=== PATIENT | male | born 1980 | race African-American/Black ===

== ENCOUNTER 2021-08-02 18:30 | Inpatient (IN) | payer BC ==
[~2021-08-02] VITALS: Ht 172.7 cm; Wt 66.0 kg
[2021-08-02 18:59] LABS: BASO # 0.1 x10^3/uL (0.0-0.2); BASO % 1 % (0-3); EOS % 0 % (0-3); HEMATOCRIT 37.3 % (39.0-53.0); HEMOGLOBIN 12.5 g/dL (13.0-17.5); LYMPH # 1.3 x10^3/uL (1.0-4.8); LYMPH % 15 % (24-48); MEAN CORPUSCULAR HEMOGLOBIN 32 pg (25-35); MEAN CORPUSCULAR HGB CONC 34 g/dL (31-37); MEAN CORPUSCULAR VOLUME 94 fL (79-100); MONO # 0.8 x10^3/uL (0.0-1.1); MONO % 9 % (0-9); NEUT # 6.5 x10^3/uL (1.8-7.7); NEUT % 75 % (31-73); PLATELET COUNT 212 x10^3/uL (140-400); RED BLOOD COUNT 3.99 x10^6/uL (4.30-5.70); RED CELL DISTRIBUTION WIDTH 14.6 % (11.5-14.5); WHITE BLOOD COUNT 8.6 x10^3/uL (4.0-11.0)
[2021-08-02] MEDS ORDERED: IV NORMAL SALINE 1000ML BAG 1,000 ML IV ONE ×2 (19:00→20:00)
[2021-08-02 19:07] LABS: CREATININE 1.4 mg/dL (0.7-1.3); GFR 68.3; POTASSIUM 3.3 mmol/L (3.5-5.1)
--- NOTE | 2021-08-02 19:14 | PHYS DOC ---
Past Medical History Past Medical History: No Pertinent History Past Surgical History: No Surgical History Additional Past Surgical Histo: dental Smoking Status: Current Every Day Smoker Alcohol Use: Heavy Drug Use: Marijuana General Adult EDM: Chief Complaint: SEIZURE HPI: HPI: Patient is a 40 year old male who presents with was at work at [employer] today when he had a seizure. Coworker stated that it lasted for approximately 2 minutes. He fell from standing. He states that he has a frontal lobe headache and left-sided neck pain. He states that he thinks about 6 months ago he had his seizure and with the [facility] and they started him on Keppra. He states he never followed up and he does not have a neurologist or primary care. He states he has not taken his Keppra for the last 2 months. When asked why he has not taken his Keppra he stated that he did not have another prescription for the medication. Rates his headache at a aching 6 out of 10. Denies abdominal pain, nausea, vomiting, diarrhea, aura, vision change, numbness or tingling, chest pain, shortness of air, recent illness, focal weakness, back pain, drug use. Review of Systems: Review of Systems: Constitutional: Denies fever or chills. [] Eyes: Denies change in visual acuity. [] HENT: Denies nasal congestion or sore throat. [] Respiratory: Denies cough or shortness of breath. [] Cardiovascular: Denies chest pain or edema. [] GI: Denies abdominal pain, nausea, vomiting, bloody stools or diarrhea. [] : Denies dysuria. [] Musculoskeletal: Denies back pain or joint pain.+ Neck pain [] Integument: Denies rash. [] Neurologic: + headache, denies focal weakness or sensory changes. + Seizure. Endocrine: Denies polyuria or polydipsia. [] Lymphatic: Denies swollen glands. [] Psychiatric: Denies depression or anxiety. [] Heart Score: C/O Chest Pain: No Current Medications: Current Medications Medications (Trade) Dose Ordered Sig/Marcos Start Time Stop Time Status Last Admin Dose Admin Levetiracetam 100 ml @ 400 mls/hr 1X ONCE 08/02/21 19:15 08/02/21 19:29 Sodium Chloride 1,000 ml @ 1,000 mls/hr 1X ONCE 08/02/21 19:00 08/02/21 19:59 Allergies: Allergies: Allergies Coded Allergies Type Severity Reaction Last Updated Verified No Known Drug Allergies 08/02/21 No Physical Exam: PE: Constitutional: Well developed, well nourished, no acute distress, non-toxic appearance. [] HENT: Normocephalic, atraumatic, bilateral external ears normal, oropharynx moist, no oral exudates, nose normal. [] Eyes: PERRLA, EOMI, conjunctiva normal, no discharge. [] Neck: Normal range of motion, no tenderness, supple, no stridor. [] Cardiovascular:Heart rate regular rhythm, no murmur [] Lungs & Thorax: Bilateral breath sounds clear to auscultation [] Abdomen: Bowel sounds normal, soft, no tenderness, no masses, no pulsatile masses. [] Skin: Warm, dry, no erythema, no rash. [] Back: No tenderness, no CVA tenderness. [] Extremities: No tenderness, no cyanosis, no clubbing, ROM intact, no edema. [] Neurologic: Alert and oriented X 3, normal motor function, normal sensory function, no focal deficits noted. [] Psychologic: Affect normal, judgement normal, mood normal. [] Normal physical exam Current Patient Data: Labs: Laboratory Tests Test 08/02/21 18:40 White Blood Count 8.6 x10^3/uL (4.0-11.0) Red Blood Count 3.99 x10^6/uL (4.30-5.70) L Hemoglobin 12.5 g/dL (13.0-17.5) L Hematocrit 37.3 % (39.0-53.0) L Mean Corpuscular Volume 94 fL (79-100) Mean Corpuscular Hemoglobin 32 pg (25-35) Mean Corpuscular Hemoglobin Concent 34 g/dL (31-37) Red Cell Distribution Width 14.6 % (11.5-14.5) H Platelet Count 212 x10^3/uL (140-400) Neutrophils (%) (Auto) 75 % (31-73) H Lymphocytes (%) (Auto) 15 % (24-48) L Monocytes (%) (Auto) 9 % (0-9) Eosinophils (%) (Auto) 0 % (0-3) Basophils (%) (Auto) 1 % (0-3) Neutrophils # (Auto) 6.5 x10^3/uL (1.8-7.7) Lymphocytes # (Auto) 1.3 x10^3/uL (1.0-4.8) Monocytes # (Auto) 0.8 x10^3/uL (0.0-1.1) Eosinophils # (Auto) 0.0 x10^3/uL (0.0-0.7) Basophils # (Auto) 0.1 x10^3/uL (0.0-0.2) Laboratory Tests 08/02/21 18:40 Vital Signs: Vital Signs Date Time Temp Pulse Resp B/P (MAP) Pulse Ox O2 Delivery O2 Flow Rate FiO2 08/02/21 18:30 98.6 74 16 165/112 (129) 100 Room Air 98.6 EKG: EK and read by Dr. Hancock as a sinus rhythm and no STEMI Radiology/Procedures: Radiology/Procedures: [] Impression: [place] [address] IMAGING REPORT Signed PATIENT: HARMAN MENSAH ACCOUNT: [id number] : 1980 LOCATION: ER AGE: 40 SEX: M EXAM STATUS: REG ER ORD. PHYSICIAN: JOHNY HOUSER APRN REASON: SYNCOPE PROCEDURE: PORTABLE CHEST 1V Exam: Chest one view INDICATION: Syncope TECHNIQUE: Frontal view of the chest Comparisons: None FINDINGS: The cardiomediastinal silhouette and pulmonary vessels are within normal limits. The lung and pleural spaces are clear. IMPRESSION: No acute cardiopulmonary process. Electronically signed by: Monet Gama MD (08/02/2021 7:34 PM) [facility] DICTATED and SIGNED BY: OMNET GAMA MD DATE: 08/02/211930 [address] [address] IMAGING REPORT Signed PATIENT: HARMAN JOHNSON EACCOUNT: [id number] : 1980 LOCATION: ER AGE: 40 SEX: M EXAM STATUS: REG ER ORD. PHYSICIAN: JOHNY HOUSER APRN REASON: SEIZURE, FALL PROCEDURE: CT HEAD AND CERVICAL SPINE WO Exam: CT head and cervical spine INDICATION: Seizure, fall TECHNIQUE: Sequential axial images through the head and cervical spine were obtained without the administration of IV contrast. Exposure: One or more of the following in the visualized dose reduction t echniques were utilized for this examination: 1. Automated exposure control 2. Adjustment of the MA and/or KV according to patient size 3. Use of iterative of reconstructive technique Comparisons: None FINDINGS: Head: No focal parenchymal lesion or hemorrhage is identified. There is no midline shift or sulcal effacement. No acute vascular territory infarction is identified. Elizondo-white distinction is preserved. The ventricular system is within normal limits without compression hydrocepha darling. The basal cisterns are well maintained. The visualized portions of the paranasal sinuses and mastoid air cells are well- pneumatized. No acute fractures. Cervical spine: Vertebral body heights and alignment are well-maintained. Fracture through the cervical spine is not identified. No significant spondylotic change in the cervical spine. Visualized paraspinal soft tissues are unremarkable. IMPRESSION: 1. No acute intracranial abnormality. 2. Negative CT C-spine for acute traumatic injury. Electronically signed by: Monet Gama MD (08/02/2021 8:50 PM) [facility] DICTATED and SIGNED BY: MONET GAMA MD DATE: 08/02/212046 Course & Med Decision Making: Course & Med Decision Making Pertinent Labs and Imaging studies reviewed. (See chart for details) See HPI. Alert and oriented x4. Ambulatory with steady gait. Answers all questions appropriately. Moving all extremities equally with equal strengths. PERRLA. Skin pink warm and dry. Abdomen soft and nontender. No focal bony spinal tenderness. No signs of trauma. No abrasions, lacerations or bruising seen to the patient. Lungs are clear to auscultation in all lobes. Full range of motion of the neck. Not postictal at this time but states he does not remember what he was doing before he had the seizure. Denies any kind of aura. Patient has not vomited twice once in the EMS bay when he was brought in and now again in the room. He is very dehydrated. Patient has been unable to give me a specimen. Is gotten 2 L normal saline in ED. He had a loading dose of Keppra in the ED. CT head and neck showed no acute findings. Patient's liver enzymes are elevated but he denies any abdominal pain. [] Dragon Disclaimer: Dragon Disclaimer: This electronic medical record was generated, in whole or in part, using a voice recognition dictation system. Departure Departure Impression: Primary Impression: Seizure Disposition: 09 ADMITTED INPATIENT Admitting Physician: KASSIE Condition: STABLE Referrals: NO PCP (PCP) JOHNY HOUSER INSTRUMENT REPAIRER Aug 02, 2021 19:14
[2021-08-02] MEDS ORDERED: levETIRAcetam 1,000mg PREMIX 100 ML IV ONE (19:15)
[2021-08-02 19:22] LABS: ALBUMIN 5.1 g/dL (3.4-5.0); ALBUMIN/GLOBULIN RATIO 1.2 (1.0-1.7); MAGNESIUM 2.1 mg/dL (1.8-2.4); TOTAL BILIRUBIN 1.6 mg/dL (0.2-1.0); TOTAL PROTEIN 9.3 g/dL (6.4-8.2)
--- NOTE | 2021-08-02 19:36 | RAD ---
Exam: Chest one view INDICATION: Syncope TECHNIQUE: Frontal view of the chest Comparisons: None FINDINGS: The cardiomediastinal silhouette and pulmonary vessels are within normal limits. The lung and pleural spaces are clear. IMPRESSION: No acute cardiopulmonary process. Electronically signed by: Monet Rodríguez MD (08/02/2021 7:34 PM) [facility]
--- NOTE | 2021-08-02 20:53 | RAD ---
Exam: CT head and cervical spine INDICATION: Seizure, fall TECHNIQUE: Sequential axial images through the head and cervical spine were obtained without the admi nistration of IV contrast. Exposure: One or more of the following in the visualized dose reduction techniques were utilized for this examination: 1. Automated exposure control 2. Adjustment of the MA and/or KV according to patient size 3. Use of iterative of reconstructive technique Comparisons: None FINDINGS: Head: No focal parenchymal lesion or hemorrhage is identified. There is no midline shift or sulcal effaceme nt. No acute vascular territory infarction is identified. Elizondo-white distinction is preserved. The ventricular system is within normal limits without compression hydrocephalus. The basal cisterns are well maintained. The visualized portions of the paranasal sinuses and mastoid air cells are well-pneumatized. No acute fractures. Cervical spine: Vertebral body heights and alignment are well-maintained. Fracture through the cervical spine is not identified. No significant spondylotic change in the cervical spine. Visualized paraspinal soft tissues are unremarkable. IMPRESSION: 1. No acute intracranial abnormality. 2. Negative CT C-spine for acute traumatic injury. Electronically signed by: Monet Rodríguez MD (08/02/2021 8:50 PM) [facility]
[2021-08-02] MEDS ORDERED: ACETAMINOPHEN 325 MG TABLET. PO PRN (21:45)
[2021-08-02] MEDS ORDERED: ONDANSETRON PF 4 MG/2 ML VIAL. IVP PRN (21:45)
[2021-08-02] MEDS ORDERED: ONDANSETRON PF 4 MG/2 ML VIAL. IVP ONE (22:00)
[2021-08-02 22:45] VITALS: BP 128/79
[2021-08-03 00:04] LABS: AMPHETAMINE/METHAMPHETAMINE NEG (NEG); BARBITURATES NEG (NEG); BENZODIAZEPINES NEG (NEG); CANNABINOIDS POS (NEG); COCAINE NEG (NEG); METHADONE NEG (NEG); OPIATES NEG (NEG); PHENCYCLIDINE NEG (NEG)
[2021-08-03] MEDS ORDERED: LEVE500T6 PO (00:54)
[2021-08-03 03:20] VITALS: BP 138/86
--- NOTE | 2021-08-03 06:07 | EKG ---
[facility] [address] [place] [address] Test Date: 2021-08-02 Test Time: 19:46:05 Pat Name: HARMAN JOHNSON Department: Room: [facility] Gender: M [employer]: : 1980 Requested By: JOHNY HOUSER Order Number: [id number] Reading MD: Severino Paniagua Measurements Intervals [place] Rate: 70 P: 51 KS: 162 QRS: 43 QRSD: 82 T: 39 QT: 384 QTc: 417 Interpretive Statements SINUS RHYTHM Electronically Signed On 08-09-2021 14:14:11 CDT by Severino Paniagua
[2021-08-03 07:00] VITALS: BP 131/84
--- NOTE | 2021-08-03 09:40 | PDOC1 ---
History and Physical Date of Admission Date of Admission DATE: 08/03/21 TIME: 09:38 Source Source: Chart review, Patient History of Present Illness History of Present Illness Marybeth, is a 40 year old male had a seizure just after he clocked into work, reproted 2 minute grand-mal seizrue by a coworker. was standing and fell, He has no recollection,but awoke in the ambualnce, reported same admit 6 months ago, seizure and admit [facility] and they started him on Keppra and he has not followed up and has now run out of meds for 2 months. talking to me, he doesnt want to take any meds, barely wants to try tylenol for his headache, talks about "I dont want to be depedent of drugs" or " I dont want to flood my system with a bunch of drugs" Rates his headache at a aching 6 out of 10 Past Medical History Cardiovascular: No pertinent hx CENTRAL NERVOUS SYSTEM: Seizure Hepatobiliary: No pertinent hx Psych: No pertinent hx Rheumatologic: No pertinent hx Endocrine: No pertinent hx Dermatology: No pertinent hx Past Surgical History Past Surgical History: No pertinent history Family History Family History: No Significant Family History: Parent Social History Smoke: No ALCOHOL: none Drugs: None Current Problem List Problem List Problems Medical Problems: (1) Seizure Status: Acute Current Medications Current Medications Current Medications Sodium Chloride 1,000 ml @ 1,000 mls/hr 1X ONCE IV Last administered on 08/02/21at 19:28; Start 08/02/21 at 19:00; Stop 08/02/21 at 19:59; Status DC Levetiracetam 100 ml @ 400 mls/hr 1X ONCE IV Last administered on 08/02/21at 19:19; Start 08/02/21 at 19:15; Stop 08/02/21 at 19:29; Status DC Sodium Chloride 1,000 ml @ 1,000 mls/hr 1X ONCE IV Last administered on 08/02/21at 20:17; Start 08/02/21 at 20:00; Stop 08/02/21 at 20:59; Status DC Ondansetron HCl (Zofran) 4 mg 1X ONCE IVP ; Start 08/02/21 at 22:00; Stop 08/02/21 at 22:01; Status DC Ondansetron HCl (Zofran) 4 mg PRN Q8HRS PRN IVP NAUSEA/VOMITING 1ST CHOICE; Start 08/02/21 at 21:45; Stop 08/03/21 at 21:44 Acetaminophen (Tylenol) 650 mg PRN Q4HRS PRN PO FEVER > 100.3'F; Start 08/02/21 at 21:45; Stop 08/03/21 at 21:44 Active Scripts Active Reported Levetiracetam 500 Mg Tablet 1 Tab PO BID Allergies Allergies: Coded Allergies: No Known Drug Allergies (Unverified , 08/02/21) ROS Review of System Denies abdominal pain, nausea, vomiting, diarrhea, aura, vision change, numbness or tingling, chest pain, shortness of air, recent illness, focal weakness, back pain, drug use. General: No: Chills, Night Sweats, Fatigue, Malaise, Appetite, Other PSYCHOLOGICAL ROS: No: Anxiety, Behavioral Disorder, Concentration difficultie, Decreased libido, Depression, Disorientation, Hallucinations, Hostility, Irritablity, Memory difficulties, Mood Swings, Obsessive thoughts, Physical abuse, Sexual abuse, Sleep disturbances, Suicidal ideation, Other Eyes: No Blurry vision, No Decreased vision, No Double vision, No Dry eyes, No Excessive tearing, No Eye Pain, No Itchy Eyes, No Loss of vision, No Photophobia, No Scotomata, No Uses contacts, No Uses glasses, No Other HEENT: YES: Heacaches; No: Visual Changes, Hearing change, Nasal congestion, Nasal discharge, Oral lesions, Sinus pain, Sore Throat, Epistaxis, Sneezing, Snoring, Tinnitus, Vertigo, Vocal changes, Other Respiratory: No: Cough, Hemoptysis, Orthopnea, Pleuritic Pain, Shortness of breath, SOB with excertion, Sputum Changes, Stridor, Tachypnea, Wheezing, Other Cardiovascular: No Chest Pain, No Palpitations, No Orthopnea, No Paroxysmal Noc. Dyspnea, No Edema, No Lt Headedness, No Other Gastrointestinal: No Nausea, No Vomiting, No Abdominal Pain, No Diarrhea, No Constipation, No Melena, No Hematochezia, No Other Genitourinary: No Dysuria, No Frequency, No Incontinence, No Hematuria, No Retention, No Discharge, No Urgency, No Pain, No Flank Pain, No Other, No , No , No , No , No , No , No Musculoskeletal: Yes Joint Stiffness, Yes Joint Swelling, Yes Pain In: (back); No Gait Disturbance, No Joint Pain, No Muscle Pain, No Muscular Weakness, No Swelling In:, No Other Neurological: No Behavorial Changes, No Bowel/Bladder ControlChng, No Confusion, No Dizziness, No Gait Disturbance, No Headaches, No Impaired Coord/balance, No Memory Loss, No Numbness/Tingling, No Seizures, No Speech Problems, No Tremors, No Visual Changes, No Weakness, No Other Skin: No Dry Skin, No Eczema, No Hair Changes, No Lumps, No Mole Changes, No Mottling, No Nail Changes, No Pruritus, No Rash, No Skin Lesion Changes, No Other, No Acne Physical Exam General: Alert, Oriented X3, Cooperative, No acute distress HEENT: Atraumatic, PERRLA Heart: S1S2, RRR, no murmurs Extremities: No clubbing, No edema Skin: No breakdown Neuro: Normal speech, Normal tone, Cranial nerves 3-12 NL Psych/Mental Status: Mental status NL, Mood NL Vitals Vitals Vital Signs Date Time Temp Pulse Resp B/P (MAP) Pulse Ox O2 Delivery O2 Flow Rate FiO2 08/03/21 08:00 Room Air 08/03/21 07:00 98.5 83 20 131/84 (100) 100 98.5 Labs Labs Laboratory Tests Test 08/02/21 18:40 08/02/21 23:23 White Blood Count 8.6 x10^3/uL (4.0-11.0) Red Blood Count 3.99 x10^6/uL (4.30-5.70) Hemoglobin 12.5 g/dL (13.0-17.5) Hematocrit 37.3 % (39.0-53.0) Mean Corpuscular Volume 94 fL (79-100) Mean Corpuscular Hemoglobin 32 pg (25-35) Mean Corpuscular Hemoglobin Concent 34 g/dL (31-37) Red Cell Distribution Width 14.6 % (11.5-14.5) Platelet Count 212 x10^3/uL (140-400) Neutrophils (%) (Auto) 75 % (31-73) Lymphocytes (%) (Auto) 15 % (24-48) Monocytes (%) (Auto) 9 % (0-9) Eosinophils (%) (Auto) 0 % (0-3) Basophils (%) (Auto) 1 % (0-3) Neutrophils # (Auto) 6.5 x10^3/uL (1.8-7.7) Lymphocytes # (Auto) 1.3 x10^3/uL (1.0-4.8) Monocytes # (Auto) 0.8 x10^3/uL (0.0-1.1) Eosinophils # (Auto) 0.0 x10^3/uL (0.0-0.7) Basophils # (Auto) 0.1 x10^3/uL (0.0-0.2) Sodium Level 131 mmol/L (136-145) Potassium Level 3.3 mmol/L (3.5-5.1) Chloride Level 93 mmol/L (98-107) Carbon Dioxide Level 22 mmol/L (21-32) Anion Gap 16 (6-14) Blood Urea Nitrogen 7 mg/dL (8-26) Creatinine 1.4 mg/dL (0.7-1.3) Estimated GFR (Cockcroft-Gault) 68.3 BUN/Creatinine Ratio 5 (6-20) Glucose Level 200 mg/dL (70-99) Calcium Level 10.0 mg/dL (8.5-10.1) Magnesium Level 2.1 mg/dL (1.8-2.4) Total Bilirubin 1.6 mg/dL (0.2-1.0) Aspartate Amino Transf (AST/SGOT) 71 U/L (15-37) Alanine Aminotransferase (ALT/SGPT) 64 U/L (16-63) Alkaline Phosphatase 55 U/L (46-116) Creatine Kinase 1332 U/L (39-308) Total Protein 9.3 g/dL (6.4-8.2) Albumin 5.1 g/dL (3.4-5.0) Albumin/Globulin Ratio 1.2 (1.0-1.7) Lipase 146 U/L (73-393) Ethyl Alcohol Level < 10 mg/dL (0-10) Acetone Level Neg (NEG) Urine Opiates Screen Neg (NEG) Urine Methadone Screen Neg (NEG) Urine Barbiturates Neg (NEG) Urine Phencyclidine Screen Neg (NEG) Urine Amphetamine/Methamphetamine Neg (NEG) Urine Benzodiazepines Screen Neg (NEG) Urine Cocaine Screen Neg (NEG) Urine Cannabinoids Screen Pos (NEG) Urine Ethyl Alcohol Neg (NEG) Laboratory Tests Test 08/02/21 18:40 08/02/21 23:23 White Blood Count 8.6 x10^3/uL (4.0-11.0) Red Blood Count 3.99 x10^6/uL (4.30-5.70) Hemoglobin 12.5 g/dL (13.0-17.5) Hematocrit 37.3 % (39.0-53.0) Mean Corpuscular Volume 94 fL (79-100) Mean Corpuscular Hemoglobin 32 pg (25-35) Mean Corpuscular Hemoglobin Concent 34 g/dL (31-37) Red Cell Distribution Width 14.6 % (11.5-14.5) Platelet Count 212 x10^3/uL (140-400) Neutrophils (%) (Auto) 75 % (31-73) Lymphocytes (%) (Auto) 15 % (24-48) Monocytes (%) (Auto) 9 % (0-9) Eosinophils (%) (Auto) 0 % (0-3) Basophils (%) (Auto) 1 % (0-3) Neutrophils # (Auto) 6.5 x10^3/uL (1.8-7.7) Lymphocytes # (Auto) 1.3 x10^3/uL (1.0-4.8) Monocytes # (Auto) 0.8 x10^3/uL (0.0-1.1) Eosinophils # (Auto) 0.0 x10^3/uL (0.0-0.7) Basophils # (Auto) 0.1 x10^3/uL (0.0-0.2) Sodium Level 131 mmol/L (136-145) Potassium Level 3.3 mmol/L (3.5-5.1) Chloride Level 93 mmol/L (98-107) Carbon Dioxide Level 22 mmol/L (21-32) Anion Gap 16 (6-14) Blood Urea Nitrogen 7 mg/dL (8-26) Creatinine 1.4 mg/dL (0.7-1.3) Estimated GFR (Cockcroft-Gault) 68.3 BUN/Creatinine Ratio 5 (6-20) Glucose Level 200 mg/dL (70-99) Calcium Level 10.0 mg/dL (8.5-10.1) Magnesium Level 2.1 mg/dL (1.8-2.4) Total Bilirubin 1.6 mg/dL (0.2-1.0) Aspartate Amino Transf (AST/SGOT) 71 U/L (15-37) Alanine Aminotransferase (ALT/SGPT) 64 U/L (16-63) Alkaline Phosphatase 55 U/L (46-116) Creatine Kinase 1332 U/L (39-308) Total Protein 9.3 g/dL (6.4-8.2) Albumin 5.1 g/dL (3.4-5.0) Albumin/Globulin Ratio 1.2 (1.0-1.7) Lipase 146 U/L (73-393) Ethyl Alcohol Level < 10 mg/dL (0-10) Acetone Level Neg (NEG) Urine Opiates Screen Neg (NEG) Urine Methadone Screen Neg (NEG) Urine Barbiturates Neg (NEG) Urine Phencyclidine Screen Neg (NEG) Urine Amphetamine/Methamphetamine Neg (NEG) Urine Benzodiazepines Screen Neg (NEG) Urine Cocaine Screen Neg (NEG) Urine Cannabinoids Screen Pos (NEG) Urine Ethyl Alcohol Neg (NEG) VTE Prophylaxis Ordered VTE Prophylaxis Devices: No VTE Pharmacological Prophylaxi: Yes Assessment/Plan Assessment/Plan seizure, of keppra 2 months, restart rhabdomyolysis from seizure, 2 liters IV fluid given, restart fluid at 150 headache, try tylenol, fioricet, Neuro consult on obs, needs to stay, admit for rhabdo Justifications for Admission Other Justification CHIKA XIAO MD Aug 03, 2021 09:40
[2021-08-03] MEDS ORDERED: BUTALB/APAP/CAFEIN 50/325/40MG TABLET. PO PRN (09:45)
[2021-08-03] MEDS ORDERED: ACETAMINOPHEN 325 MG TABLET. PO ONE (09:45)
[2021-08-03] MEDS ORDERED: ACETAMINOPHEN 325 MG TABLET. PO PRN (09:45)
[2021-08-03] MEDS ORDERED: POTASSIUM CHLORIDE 20 MEQ TABLET.ER. PO ONE (10:00)
[2021-08-03] MEDS: IV NORMAL SALINE 1000ML BAG 1,000 ML IV SCH ×3 (10:08→20:28)
[2021-08-03] MEDS: levETIRAcetam 500 MG TABLET PO SCH ×2 (10:08→20:28)
[2021-08-03 11:00] VITALS: BP 123/79
[2021-08-03 11:45] LABS: HEMATOCRIT 36.4 % (39.0-53.0); HEMOGLOBIN 12.3 g/dL (13.0-17.5); RED BLOOD COUNT 3.89 x10^6/uL (4.30-5.70); RED CELL DISTRIBUTION WIDTH 14.5 % (11.5-14.5); WHITE BLOOD COUNT 8.1 x10^3/uL (4.0-11.0)
[2021-08-03 12:22] LABS: ALBUMIN/GLOBULIN RATIO 1.1 (1.0-1.7); CALCIUM 9.3 mg/dL (8.5-10.1); GFR 100.7; POTASSIUM 3.4 mmol/L (3.5-5.1); TOTAL BILIRUBIN 1.5 mg/dL (0.2-1.0); TOTAL PROTEIN 7.8 g/dL (6.4-8.2)
[2021-08-03 15:00] VITALS: BP 112/85
[2021-08-03] MEDS: ENOXAPARIN 40 MG/0.4 ML SYRINGE. SQ SCH (16:50)
--- NOTE | 2021-08-03 18:23 | PDOC2 ---
CONSULT Date of Consult Date of Consult DATE: 08/03/21 TIME: 18:21 Reason for Consult Reason for Consult: seizures Identification/Chief Complaint Chief Complaint seizures History of Present Illness Reason for Visit: Patient is 40-year-old man with past medical history of seizures patient was previously treated and also was started on Keppra. Patient is noncompliant with his medication. Patient had episodes of jerking in his extremity weakness by coworker. Patient was started back on Keppra. Patient denied any complaint of headache nausea vomiting chest pain shortness of breath. Patient had improvement in symptoms. No new clinical seizures. Past Medical History Cardiovascular: No pertinent hx CENTRAL NERVOUS SYSTEM: Seizure Hepatobiliary: No pertinent hx Psych: No pertinent hx Rheumatologic: No pertinent hx Endocrine: No pertinent hx Dermatology: No pertinent hx Past Surgical History Past Surgical History: No pertinent history Family History Family History: No Significant Social History Social History: Parent No ALCOHOL: none Drugs: None Current Problem List Problem List Problems Medical Problems: (1) Seizure Status: Acute Current Medications Current Medications Current Medications Sodium Chloride 1,000 ml @ 1,000 mls/hr 1X ONCE IV Last administered on 08/02/21at 19:28; Start 08/02/21 at 19:00; Stop 08/02/21 at 19:59; Status DC Levetiracetam 100 ml @ 400 mls/hr 1X ONCE IV Last administered on 08/02/21at 19 :19; Start 08/02/21 at 19:15; Stop 08/02/21 at 19:29; Status DC Sodium Chloride 1,000 ml @ 1,000 mls/hr 1X ONCE IV Last administered on 08/02/21at 20:17; Start 08/02/21 at 20:00; Stop 08/02/21 at 20:59; Status DC Ondansetron HCl (Zofran) 4 mg 1X ONCE IVP ; Start 08/02/21 at 22:00; Stop 08/02/21 at 22:01; Status DC Ondansetron HCl (Zofran) 4 mg PRN Q8HRS PRN IVP NAUSEA/VOMITING 1ST CHOICE; Start 08/02/21 at 21:45; Stop 08/03/21 at 21:44 Acetaminophen (Tylenol) 650 mg PRN Q4HRS PRN PO FEVER > 100.3'F; Start 08/02/21 at 21:45; Stop 08/03/21 at 12:40; Status DC Levetiracetam (Keppra) 500 mg BID PO Last administered on 08/03/21at 10:08; St art 08/03/21 at 10:30 Potassium Chloride (Klor-Con) 40 meq 1X ONCE PO Last administered on 08/03/21at 10:08; Start 08/03/21 at 10:00; Stop 08/03/21 at 10:01; Status DC Sodium Chloride 1,000 ml @ 150 mls/hr Q6H40M IV Last administered on 08/03/21at 16:48; Start 08/03/21 at 10:00 Acetaminophen (Tylenol) 650 mg 1X ONCE PO Last administered on 08/03/21at 10:08; Start 08/03/21 at 09:45; Stop 08/03/21 at 09:46; Status DC Acetaminophen (Tylenol) 650 mg PRN Q6HRS PRN PO MILD PAIN / TEMP > 100.3'F; Start 08/03/21 at 09:45 Acetaminophen/ Butalbital/ Caffeine (Fioricet) 1 tab PRN Q12HRS PRN PO MIGRAINE HEADACHE; Start 08/03/21 at 09:45 Enoxaparin Sodium (Lovenox Per Pharmacy Prophylaxis Dosing) 1 each PRN DAILY PRN [facility] SEE COMMENTS; Start 08/03/21 at 12:45 Enoxaparin Sodium (Lovenox 40mg Syringe) 40 mg Q24H SQ Last administered on 08/03/21at 16:50; Start 08/03/21 at 16:00 Active Scripts Active Reported Levetiracetam 500 Mg Tablet 1 Tab PO BID Allergies Allergies: Coded Allergies: No Known Drug Allergies (Unverified , 08/02/21) Physical Exam Physical Exam General: No acute distress. Eye: Pupils are equal, round and reactive to light HENT: Normocephalic. Neck: Supple, Non-tender, No carotid bruit, No jugular venous distention Respiratory: Lungs are clear to auscultation, Respirations are non-labored Cardiovascular: Normal rate, Regular rhythm, No murmur, Good pulses equal in all extremities Gastrointestinal: Soft, Non-tender, Non-distended, Normal bowel sounds. Neurological Exam: Mental status: Alert,oriented, able to follow simple commands. Speech: no dysarthria Cranial Nerves: pupils round and reactive to light, extraocular movements intact normal facial sensation in ophthalmic, maxillary, and mandibular dermatomes, muscles of mastication 5/5 bilaterally no facial droop, eye closure and eyebrow elevation symmetric symmetric palatal elevation tongue midline, no fasciculations Motor: No resting, tremor. Good strength, normal coordination. Sensory: Sensation was intact to light touch, pain, in upper and lower extremities. Reflexes: 1-2/4. Toes were downgoing. Gait: wide based. A 10-point review of systems was obtained. Other than the history of present illness the remainder of the review of systems is negative. Vitals VITALS Vital Signs Date Time Temp Pulse Resp B/P (MAP) Pulse Ox O2 Delivery O2 Flow Rate FiO2 08/03/21 15:00 98.6 74 20 112/85 (94) 100 Room Air 98.6 Labs Labs Laboratory Tests Test 08/02/21 18:40 08/02/21 23:23 08/03/21 11:20 White Blood Count 8.6 x10^3/uL (4.0-11.0) 8.1 x10^3/uL (4.0-11.0) Red Blood Count 3.99 x10^6/uL (4.30-5.70) 3.89 x10^6/uL (4.30-5.70) Hemoglobin 12.5 g/dL (13.0-17.5) 12.3 g/dL (13.0-17.5) Hematocrit 37.3 % (39.0-53.0) 36.4 % (39.0-53.0) Mean Corpuscular Volume 94 fL (79-100) 94 fL (79-100) Mean Corpuscular Hemoglobin 32 pg (25-35) 32 pg (25-35) Mean Corpuscular Hemoglobin Concent 34 g/dL (31-37) 34 g/dL (31-37) Red Cell Distribution Width 14.6 % (11.5-14.5) 14.5 % (11.5-14.5) Platelet Count 212 x10^3/uL (140-400) 174 x10^3/uL (140-400) Neutrophils (%) (Auto) 75 % (31-73) Lymphocytes (%) (Auto) 15 % (24-48) Monocytes (%) (Auto) 9 % (0-9) Eosinophils (%) (Auto) 0 % (0-3) Basophils (%) (Auto) 1 % (0-3) Neutrophils # (Auto) 6.5 x10^3/uL (1.8-7.7) Lymphocytes # (Auto) 1.3 x10^3/uL (1.0-4.8) Monocytes # (Auto) 0.8 x10^3/uL (0.0-1.1) Eosinophils # (Auto) 0.0 x10^3/uL (0.0-0.7) Basophils # (Auto) 0.1 x10^3/uL (0.0-0.2) Sodium Level 131 mmol/L (136-145) 134 mmol/L (136-145) Potassium Level 3.3 mmol/L (3.5-5.1) 3.4 mmol/L (3.5-5.1) Chloride Level 93 mmol/L (98-107) 99 mmol/L (98-107) Carbon Dioxide Level 22 mmol/L (21-32) 25 mmol/L (21-32) Anion Gap 16 (6-14) 10 (6-14) Blood Urea Nitrogen 7 mg/dL (8-26) 6 mg/dL (8-26) Creatinine 1.4 mg/dL (0.7-1.3) 1.0 mg/dL (0.7-1.3) Estimated GFR (Cockcroft-Gault) 68.3 100.7 BUN/Creatinine Ratio 5 (6-20) 6 (6-20) Glucose Level 200 mg/dL (70-99) 91 mg/dL (70-99) Calcium Level 10.0 mg/dL (8.5-10.1) 9.3 mg/dL (8.5-10.1) Magnesium Level 2.1 mg/dL (1.8-2.4) Total Bilirubin 1.6 mg/dL (0.2-1.0) 1.5 mg/dL (0.2-1.0) Aspartate Amino Transf (AST/SGOT) 71 U/L (15-37) 59 U/L (15-37) Alanine Aminotransferase (ALT/SGPT) 64 U/L (16-63) 50 U/L (16-63) Alkaline Phosphatase 55 U/L (46-116) 43 U/L (46-116) Creatine Kinase 1332 U/L (39-308) 1683 U/L (39-308) Total Protein 9.3 g/dL (6.4-8.2) 7.8 g/dL (6.4-8.2) Albumin 5.1 g/dL (3.4-5.0) 4.0 g/dL (3.4-5.0) Albumin/Globulin Ratio 1.2 (1.0-1.7) 1.1 (1.0-1.7) Lipase 146 U/L (73-393) Ethyl Alcohol Level < 10 mg/dL (0-10) Acetone Level Neg (NEG) Urine Opiates Screen Neg (NEG) Urine Methadone Screen Neg (NEG) Urine Barbiturates Neg (NEG) Urine Phencyclidine Screen Neg (NEG) Urine Amphetamine/Methamphetamine Neg (NEG) Urine Benzodiazepines Screen Neg (NEG) Urine Cocaine Screen Neg (NEG) Urine Cannabinoids Screen Pos (NEG) Urine Ethyl Alcohol Neg (NEG) Laboratory Tests Test 08/02/21 18:40 08/02/21 23:23 08/03/21 11:20 White Blood Count 8.6 x10^3/uL (4.0-11.0) 8.1 x10^3/uL (4.0-11.0) Red Blood Count 3.99 x10^6/uL (4.30-5.70) 3.89 x10^6/uL (4.30-5.70) Hemoglobin 12.5 g/dL (13.0-17.5) 12.3 g/dL (13.0-17.5) Hematocrit 37.3 % (39.0-53.0) 36.4 % (39.0-53.0) Mean Corpuscular Volume 94 fL (79-100) 94 fL (79-100) Mean Corpuscular Hemoglobin 32 pg (25-35) 32 pg (25-35) Mean Corpuscular Hemoglobin Concent 34 g/dL (31-37) 34 g/dL (31-37) Red Cell Distribution Width 14.6 % (11.5-14.5) 14.5 % (11.5-14.5) Platelet Count 212 x10^3/uL (140-400) 174 x10^3/uL (140-400) Neutrophils (%) (Auto) 75 % (31-73) Lymphocytes (%) (Auto) 15 % (24-48) Monocytes (%) (Auto) 9 % (0-9) Eosinophils (%) (Auto) 0 % (0-3) Basophils (%) (Auto) 1 % (0-3) Neutrophils # (Auto) 6.5 x10^3/uL (1.8-7.7) Lymphocytes # (Auto) 1.3 x10^3/uL (1.0-4.8) Monocytes # (Auto) 0.8 x10^3/uL (0.0-1.1) Eosinophils # (Auto) 0.0 x10^3/uL (0.0-0.7) Basophils # (Auto) 0.1 x10^3/uL (0.0-0.2) Sodium Level 131 mmol/L (136-145) 134 mmol/L (136-145) Potassium Level 3.3 mmol/L (3.5-5.1) 3.4 mmol/L (3.5-5.1) Chloride Level 93 mmol/L (98-107) 99 mmol/L (98-107) Carbon Dioxide Level 22 mmol/L (21-32) 25 mmol/L (21-32) Anion Gap 16 (6-14) 10 (6-14) Blood Urea Nitrogen 7 mg/dL (8-26) 6 mg/dL (8-26) Creatinine 1.4 mg/dL (0.7-1.3) 1.0 mg/dL (0.7-1.3) Estimated GFR (Cockcroft-Gault) 68.3 100.7 BUN/Creatinine Ratio 5 (6-20) 6 (6-20) Glucose Level 200 mg/dL (70-99) 91 mg/dL (70-99) Calcium Level 10.0 mg/dL (8.5-10.1) 9.3 mg/dL (8.5-10.1) Magnesium Level 2.1 mg/dL (1.8-2.4) Total Bilirubin 1.6 mg/dL (0.2-1.0) 1.5 mg/dL (0.2-1.0) Aspartate Amino Transf (AST/SGOT) 71 U/L (15-37) 59 U/L (15-37) Alanine Aminotransferase (ALT/SGPT) 64 U/L (16-63) 50 U/L (16-63) Alkaline Phosphatase 55 U/L (46-116) 43 U/L (46-116) Creatine Kinase 1332 U/L (39-308) 1683 U/L (39-308) Total Protein 9.3 g/dL (6.4-8.2) 7.8 g/dL (6.4-8.2) Albumin 5.1 g/dL (3.4-5.0) 4.0 g/dL (3.4-5.0) Albumin/Globulin Ratio 1.2 (1.0-1.7) 1.1 (1.0-1.7) Lipase 146 U/L (73-393) Ethyl Alcohol Level < 10 mg/dL (0-10) Acetone Level Neg (NEG) Urine Opiates Screen Neg (NEG) Urine Methadone Screen Neg (NEG) Urine Barbiturates Neg (NEG) Urine Phencyclidine Screen Neg (NEG) Urine Amphetamine/Methamphetamine Neg (NEG) Urine Benzodiazepines Screen Neg (NEG) Urine Cocaine Screen Neg (NEG) Urine Cannabinoids Screen Pos (NEG) Urine Ethyl Alcohol Neg (NEG) Assessment/Plan Assessment/Plan Patient is 40-year-old man with past medical history of seizures patient was previously treated and also was started on Keppra. Patient is noncompliant with his medication. Patient had episodes of jerking in his extremity weakness by coworker. Patient was started back on Keppra. Patient denied any complaint of headache nausea vomiting chest pain shortness of breath. Patient had impro vement in symptoms. No new clinical seizures. With episodes of seizures. Patient was previously started on Keppra. Patient n oncompliant with the medication. Patient had episodes concerning for seizure activity generalized seizures patient was started on Keppra. Patient had improvement in symptoms. Nonfocal neurological exam. Patient had a CT scan done brain did not show any evidence of acute intracranial theology no evidence of acute hemorrhage or mass. CT cervical spine did not show any evidence of acute trauma. Seizure precautions discussed at length. No driving until 6 months seizure-free. Obtain previous records. Discussed further work-up EEG, MRIs patient will get as an outpatient. Rhabdomyolysis continue treat and monitor. Continue medical management. Plan discussed at length. Thank you for allowing me to take part in this patient's care. Please not hesitate to contact me with questions. Transcribed using dictation device. The dictation could contain irregularities inherent in the voice to text conversion software, which may not be detected during the document review process. Please contact our office in case of any confusion or for any clarification, as needed. KP MIRANDA MD Aug 03, 2021 18:23
[2021-08-03 19:15] VITALS: BP 138/85
[2021-08-03 22:55] VITALS: BP 139/90
[2021-08-04 02:54] VITALS: BP 135/95
[2021-08-04 04:25] LABS: CALCIUM 8.8 mg/dL (8.5-10.1); CREATININE 0.8 mg/dL (0.7-1.3); GFR 130.2; POTASSIUM 3.5 mmol/L (3.5-5.1)
[2021-08-04] MEDS: IV NORMAL SALINE 1000ML BAG 1,000 ML IV SCH ×3 (05:48→21:02)
[2021-08-04 07:10] VITALS: BP 142/89
[2021-08-04] MEDS: levETIRAcetam 500 MG TABLET PO SCH ×2 (07:57→21:02)
[2021-08-04 12:15] VITALS: BP 129/96
--- NOTE | 2021-08-04 14:13 | PDOC ---
[employer] PROGRESS NOTE Date of Service DOS: DATE: 08/04/21 TIME: 14:12 Chief Complaint Chief Complaint seizure, off keppra 2 months, restarted rhabdomyolysis from seizure, cont IV fluid at 150 headache, History of Present Illness History of Present Illness CK still up, 1600 cont IV fluid he feels well can DC if CK improved Vitals/I&O Vitals/I&O: Vital Signs Date Time Temp Pulse Resp B/P (MAP) Pulse Ox O2 Delivery O2 Flow Rate FiO2 08/04/21 12:15 98.5 106 18 129/96 (107) 98 Room Air 98.5 I & O 08/03/21 08/03/21 08/04/21 15:00 23:00 07:00 Intake Total 720 ml 120 ml Output Total 1 ml Balance 719 ml 120 ml Physical Exam General: Alert, Oriented X3, Cooperative, No acute distress Heart: No murmurs Lungs: Clear Extremities: No clubbing, No edema Skin: No breakdown Labs Labs: Laboratory Tests Test 08/04/21 03:30 Sodium Level 137 mmol/L (136-145) Potassium Level 3.5 mmol/L (3.5-5.1) Chloride Level 104 mmol/L (98-107) Carbon Dioxide Level 27 mmol/L (21-32) Anion Gap 6 (6-14) Blood Urea Nitrogen 5 mg/dL (8-26) Creatinine 0.8 mg/dL (0.7-1.3) Estimated GFR (Cockcroft-Gault) 130.2 Glucose Level 84 mg/dL (70-99) Calcium Level 8.8 mg/dL (8.5-10.1) Creatine Kinase 1655 U/L (39-308) Assessment and Plan Assessmemt and Plan Problems Medical Problems: (1) Seizure Status: Acute Comment Review of Relevant I have reviewed the following items paige (where applicable) has been applied. Medications: Current Medications Medications (Trade) Dose Ordered Sig/Marcos Route PRN Reason Start Time Stop Time Status Last Admin Dose Admin Enoxaparin Sodium (Lovenox 40mg Syringe) 40 mg Q24H SQ 08/03/21 16:00 08/03/21 16:50 Justifications for Admission Other Justification CHIKA XIAO MD Aug 04, 2021 14:13
[2021-08-04 15:30] VITALS: BP 150/101
[2021-08-04] MEDS: ENOXAPARIN 40 MG/0.4 ML SYRINGE. SQ SCH (16:00)
--- NOTE | 2021-08-04 18:16 | PDOC ---
PROGRESS NOTES DOS: DATE: 08/04/21 TIME: 18:14 Assessment Problems Medical Problems: (1) Seizure Status: Acute Plan Patient is 40-year-old man with past medical history of seizures patient was previously treated and also was started on Keppra. Patient is noncompliant with his medication. Patient had episodes of jerking in his extremity weakness by coworker. Patient was started back on Keppra. Patient denied any complaint of headache nausea vomiting chest pain shortness of breath. Patient had improvement in symptoms. No new clinical seizures. Patient is 40-year-old man with past medical history of seizures with episodes of seizures. Patient was previously started on Keppra. Patient noncompliant with the medication. Patient had episodes concerning for seizure activity generalized seizures patient was started on Keppra. Patient had improvement in symptoms. Nonfocal neurological exam. Patient had a CT scan done brain did not show any evidence of acute intracranial theology no evidence of acute hemorrhage or mass. CT cervical spine did not show any evidence of acute trauma. Seizure precautions discussed at length. No driving until 6 months seizure-free. Obtain previous records. Discussed further work-up EEG, MRIs patient will get as an outpatient. Rhabdomyolysis continue treat and monitor. Neuro exam stable Continue medical management. Plan discussed at length. Thank you for allowing me to take part in this patient's care. Please not hesitate to contact me with questions. Transcribed using dictation device. The dictation could contain irregularities inherent in the voice to text conversion software, which may not be detected during the document review process. Please contact our office in case of any confusion or for any clarification, as needed. Subjective Patient resting in bed. He is feeling better. He denies any complaint of headache nausea vomiting chest pain. No new clinical seizures. Objective Vital Signs Date Time Temp Pulse Resp B/P (MAP) Pulse Ox O2 Delivery O2 Flow Rate FiO2 08/04/21 15:30 97.3 123 16 150/101 (117) 99 Room Air 97.3 Intake and Output 08/04/21 07:00 Intake Total 840 ml Output Total 1 ml Balance 839 ml Intake Oral 840 ml Output Urine Total 1 ml PHYSICAL EXAM General: No acute distress. Eye: Pupils are equal, round and reactive to light HENT: Normocephalic. Neck: Supple, Non-tender, No carotid bruit, No jugular venous distention Respiratory: Lungs are clear to auscultation, Respirations are non-labored Cardiovascular: Normal rate, Regular rhythm, No murmur, Good pulses equal in all extremities Gastrointestinal: Soft, Non-tender, Non-distended, Normal bowel sounds. Neurological Exam: Mental status: Alert,oriented, able to follow simple commands. Speech: no dysarthria Cranial Nerves: pupils round and reactive to light, extraocular movements intact normal facial sensation in ophthalmic, maxillary, and mandibular dermatomes, muscles of mastication 5/5 bilaterally no facial droop, eye closure and eyebrow elevation symmetric symmetric palatal elevation tongue midline, no fasciculations Motor: No resting, tremor. Good strength, normal coordination. Sensory: Sensation was intact to light touch, pain, in upper and lower extremities. Reflexes: 1-2/4. Toes were downgoing. Gait: normal Review of Relevant I have reviewed the following items paige (where applicable) has been applied. Labs Laboratory Tests Test 08/02/21 18:40 08/02/21 23:23 08/03/21 11:20 08/04/21 03:30 White Blood Count 8.6 x10^3/uL (4.0-11.0) 8.1 x10^3/uL (4.0-11.0) Red Blood Count 3.99 x10^6/uL (4.30-5.70) 3.89 x10^6/uL (4.30-5.70) Hemoglobin 12.5 g/dL (13.0-17.5) 12.3 g/dL (13.0-17.5) Hematocrit 37.3 % (39.0-53.0) 36.4 % (39.0-53.0) Mean Corpuscular Volume 94 fL (79-100) 94 fL (79-100) Mean Corpuscular Hemoglobin 32 pg (25-35) 32 pg (25-35) Mean Corpuscular Hemoglobin Concent 34 g/dL (31-37) 34 g/dL (31-37) Red Cell Distribution Width 14.6 % (11.5-14.5) 14.5 % (11.5-14.5) Platelet Count 212 x10^3/uL (140-400) 174 x10^3/uL (140-400) Neutrophils (%) (Auto) 75 % (31-73) Lymphocytes (%) (Auto) 15 % (24-48) Monocytes (%) (Auto) 9 % (0-9) Eosinophils (%) (Auto) 0 % (0-3) Basophils (%) (Auto) 1 % (0-3) Neutrophils # (Auto) 6.5 x10^3/uL (1.8-7.7) Lymphocytes # (Auto) 1.3 x10^3/uL (1.0-4.8) Monocytes # (Auto) 0.8 x10^3/uL (0.0-1.1) Eosinophils # (Auto) 0.0 x10^3/uL (0.0-0.7) Basophils # (Auto) 0.1 x10^3/uL (0.0-0.2) Sodium Level 131 mmol/L (136-145) 134 mmol/L (136-145) 137 mmol/L (136-145) Potassium Level 3.3 mmol/L (3.5-5.1) 3.4 mmol/L (3.5-5.1) 3.5 mmol/L (3.5-5.1) Chloride Level 93 mmol/L (98-107) 99 mmol/L (98-107) 104 mmol/L (98-107) Carbon Dioxide Level 22 mmol/L (21-32) 25 mmol/L (21-32) 27 mmol/L (21-32) Anion Gap 16 (6-14) 10 (6-14) 6 (6-14) Blood Urea Nitrogen 7 mg/dL (8-26) 6 mg/dL (8-26) 5 mg/dL (8-26) Creatinine 1.4 mg/dL (0.7-1.3) 1.0 mg/dL (0.7-1.3) 0.8 mg/dL (0.7-1.3) Estimated GFR (Cockcroft-Gault) 68.3 100.7 130.2 BUN/Creatinine Ratio 5 (6-20) 6 (6-20) Glucose Level 200 mg/dL (70-99) 91 mg/dL (70-99) 84 mg/dL (70-99) Calcium Level 10.0 mg/dL (8.5-10.1) 9.3 mg/dL (8.5-10.1) 8.8 mg/dL (8.5-10.1) Magnesium Level 2.1 mg/dL (1.8-2.4) Total Bilirubin 1.6 mg/dL (0.2-1.0) 1.5 mg/dL (0.2-1.0) Aspartate Amino Transf (AST/SGOT) 71 U/L (15-37) 59 U/L (15-37) Alanine Aminotransferase (ALT/SGPT) 64 U/L (16-63) 50 U/L (16-63) Alkaline Phosphatase 55 U/L (46-116) 43 U/L (46-116) Creatine Kinase 1332 U/L (39-308) 1683 U/L (39-308) 1655 U/L (39-308) Total Protein 9.3 g/dL (6.4-8.2) 7.8 g/dL (6.4-8.2) Albumin 5.1 g/dL (3.4-5.0) 4.0 g/dL (3.4-5.0) Albumin/Globulin Ratio 1.2 (1.0-1.7) 1.1 (1.0-1.7) Lipase 146 U/L (73-393) Ethyl Alcohol Level < 10 mg/dL (0-10) Acetone Level Neg (NEG) Urine Opiates Screen Neg (NEG) Urine Methadone Screen Neg (NEG) Urine Barbiturates Neg (NEG) Urine Phencyclidine Screen Neg (NEG) Urine Amphetamine/Methamphetamine Neg (NEG) Urine Benzodiazepines Screen Neg (NEG) Urine Cocaine Screen Neg (NEG) Urine Cannabinoids Screen Pos (NEG) Urine Ethyl Alcohol Neg (NEG) Laboratory Tests Test 08/04/21 03:30 Sodium Level 137 mmol/L (136-145) Potassium Level 3.5 mmol/L (3.5-5.1) Chloride Level 104 mmol/L (98-107) Carbon Dioxide Level 27 mmol/L (21-32) Anion Gap 6 (6-14) Blood Urea Nitrogen 5 mg/dL (8-26) Creatinine 0.8 mg/dL (0.7-1.3) Estimated GFR (Cockcroft-Gault) 130.2 Glucose Level 84 mg/dL (70-99) Calcium Level 8.8 mg/dL (8.5-10.1) Creatine Kinase 1655 U/L (39-308) Medications Current Medications Sodium Chloride 1,000 ml @ 1,000 mls/hr 1X ONCE IV Last administered on 08/02/21at 19:28; Start 08/02/21 at 19:00; Stop 08/02/21 at 19:59; Status DC Levetiracetam 100 ml @ 400 mls/hr 1X ONCE IV Last administered on 08/02/21at 1 9:19; Start 08/02/21 at 19:15; Stop 08/02/21 at 19:29; Status DC Sodium Chloride 1,000 ml @ 1,000 mls/hr 1X ONCE IV Last administered on 08/02/21at 20:17; Start 08/02/21 at 20:00; Stop 08/02/21 at 20:59; Status DC Ondansetron HCl (Zofran) 4 mg 1X ONCE IVP ; Start 08/02/21 at 22:00; Stop 08/02/21 at 22:01; Status DC Ondansetron HCl (Zofran) 4 mg PRN Q8HRS PRN IVP NAUSEA/VOMITING 1ST CHOICE; Start 08/02/21 at 21:45; Stop 08/03/21 at 21:44; Status DC Acetaminophen (Tylenol) 650 mg PRN Q4HRS PRN PO FEVER > 100.3'F; Start 08/02/21 at 21:45; Stop 08/03/21 at 12:40; Status DC Levetiracetam (Keppra) 500 mg BID PO Last administered on 08/04/21at 07:57; Start 08/03/21 at 10:30 Potassium Chloride (Klor-Con) 40 meq 1X ONCE PO Last administered on 08/03/21at 10:08; Start 08/03/21 at 10:00; Stop 08/03/21 at 10:01; Status DC Sodium Chloride 1,000 ml @ 150 mls/hr Q6H40M IV Last administered on 08/04/21at 13:11; Start 08/03/21 at 10:00 Acetaminophen (Tylenol) 650 mg 1X ONCE PO Last administered on 08/03/21at 10:08; Start 08/03/21 at 09:45; Stop 08/03/21 at 09:46; Status DC Acetaminophen (Tylenol) 650 mg PRN Q6HRS PRN PO MILD PAIN / TEMP > 100.3'F; Start 08/03/21 at 09:45 Acetaminophen/ Butalbital/ Caffeine (Fioricet) 1 tab PRN Q12HRS PRN PO MIGRAINE HEADACHE; Start 08/03/21 at 09:45 Enoxaparin Sodium (Lovenox Per Pharmacy Prophylaxis Dosing) 1 each PRN DAILY PRN [facility] SEE COMMENTS; Start 08/03/21 at 12:45 Enoxaparin Sodium (Lovenox 40mg Syringe) 40 mg Q24H SQ Last administered on 08/03/21at 16:50; Start 08/03/21 at 16:00 Active Scripts Active Reported Levetiracetam 500 Mg Tablet 1 Tab PO BID Vitals/I & O Vital Sign - Last 24 Hours 08/03/21 08/03/21 08/03/21 08/04/21 19:15 20:25 22:55 02:54 Temp 98.1 98.1 98.4 98.1 98.1 98.4 Pulse 74 75 85 Resp 18 18 18 B/P (MAP) 138/85 (102) 139/90 (106) 135/95 (108) Pulse Ox 94 100 95 O2 Delivery Room Air Room Air Room Air Room Air 08/04/21 08/04/21 08/04/21 08/04/21 07:10 08:00 12:15 15:30 Temp 98.2 98.5 97.3 98.2 98.5 97.3 Pulse 119 106 123 Resp 16 18 16 B/P (MAP) 142/89 (106) 129/96 (107) 150/101 (117) Pulse Ox 97 98 99 O2 Delivery Room Air Room Air Room Air Room Air Intake and Output 08/03/21 08/03/21 08/04/21 15:00 23:00 07:00 Intake Total 720 ml 120 ml Output Total 1 ml Balance 719 ml 120 ml Justicifation of Admission Dx: Justifications for Admission: Justification of Admission Dx: Yes Altered Mental Status: Altered Mental Status KP MIRANDA MD Aug 04, 2021 18:16
[2021-08-04 19:45] VITALS: BP 157/94
[2021-08-04 23:25] VITALS: BP 151/100
[2021-08-05 03:30] VITALS: BP 155/95
[2021-08-05] MEDS: IV NORMAL SALINE 1000ML BAG 1,000 ML IV SCH (03:37)
[2021-08-05 07:00] VITALS: BP 174/104
[2021-08-05] MEDS: levETIRAcetam 500 MG TABLET PO SCH (08:44)
[2021-08-05 08:59] LABS: CALCIUM 9.6 mg/dL (8.5-10.1); CREATININE 0.8 mg/dL (0.7-1.3); GFR 130.2; POTASSIUM 4.2 mmol/L (3.5-5.1)
[2021-08-05 09:20] VITALS: BP 174/104
--- NOTE | 2021-08-05 10:05 | PDOC ---
PROGRESS NOTES Date of Service DATE: 08/05/21 TIME: 10:02 Assessment Problems Medical Problems: (1) Seizure Status: Acute Epilepsy, breakthrough seizures due to noncompliance, no additional seizures here in the hospital since resuming the levetiracetam. Describes having work-up at [facility] including electroencephalogram and MRI. Rhabdomyolysis Plan Patient lost the IV in the shower, would like to see if he can drink orally rather than replacing the IV Continue levetiracetam Seizure precautions discussed at length. No driving until 6 months seizure- free. Objective Vital Signs Date Time Temp Pulse Resp B/P (MAP) Pulse Ox O2 Delivery O2 Flow Rate FiO2 08/05/21 09:20 60 174/104 08/05/21 07:00 98.0 18 100 Room Air 98.0 Intake and Output 08/05/21 07:00 Intake Total 3360 ml Output Total 200 ml Balance 3160 ml Intake Oral 1360 ml IV Total 2000 ml Output Urine Total 200 ml # Voids 7 PHYSICAL EXAM Alert. Oriented to time, place and person. PERRL. EOMI. CN: no focal findings. Muscle tone: normal. Muscle strength: 5/5 DTR: 2+ Plantar reflex: Flexor Gait: Normal Sensory exam: no abnormal findings. No cerebellar signs elicited. Review of Relevant I have reviewed the following items paige (where applicable) has been applied. Labs Laboratory Tests Test 08/03/21 11:20 08/04/21 03:30 08/05/21 07:45 White Blood Count 8.1 x10^3/uL (4.0-11.0) Red Blood Count 3.89 x10^6/uL (4.30-5.70) Hemoglobin 12.3 g/dL (13.0-17.5) Hematocrit 36.4 % (39.0-53.0) Mean Corpuscular Volume 94 fL (79-100) Mean Corpuscular Hemoglobin 32 pg (25-35) Mean Corpuscular Hemoglobin Concent 34 g/dL (31-37) Red Cell Distribution Width 14.5 % (11.5-14.5) Platelet Count 174 x10^3/uL (140-400) Sodium Level 134 mmol/L (136-145) 137 mmol/L (136-145) 139 mmol/L (136-145) Potassium Level 3.4 mmol/L (3.5-5.1) 3.5 mmol/L (3.5-5.1) 4.2 mmol/L (3.5-5.1) Chloride Level 99 mmol/L (98-107) 104 mmol/L (98-107) 102 mmol/L (98-107) Carbon Dioxide Level 25 mmol/L (21-32) 27 mmol/L (21-32) 29 mmol/L (21-32) Anion Gap 10 (6-14) 6 (6-14) 8 (6-14) Blood Urea Nitrogen 6 mg/dL (8-26) 5 mg/dL (8-26) 3 mg/dL (8-26) Creatinine 1.0 mg/dL (0.7-1.3) 0.8 mg/dL (0.7-1.3) 0.8 mg/dL (0.7-1.3) Estimated GFR (Cockcroft-Gault) 100.7 130.2 130.2 BUN/Creatinine Ratio 6 (6-20) Glucose Level 91 mg/dL (70-99) 84 mg/dL (70-99) 107 mg/dL (70-99) Calcium Level 9.3 mg/dL (8.5-10.1) 8.8 mg/dL (8.5-10.1) 9.6 mg/dL (8.5-10.1) Total Bilirubin 1.5 mg/dL (0.2-1.0) Aspartate Amino Transf (AST/SGOT) 59 U/L (15-37) Alanine Aminotransferase (ALT/SGPT) 50 U/L (16-63) Alkaline Phosphatase 43 U/L (46-116) Creatine Kinase 1683 U/L (39-308) 1655 U/L (39-308) 2990 U/L (39-308) Total Protein 7.8 g/dL (6.4-8.2) Albumin 4.0 g/dL (3.4-5.0) Albumin/Globulin Ratio 1.1 (1.0-1.7) Magnesium Level 1.9 mg/dL (1.8-2.4) Laboratory Tests Test 08/05/21 07:45 Sodium Level 139 mmol/L (136-145) Potassium Level 4.2 mmol/L (3.5-5.1) Chloride Level 102 mmol/L (98-107) Carbon Dioxide Level 29 mmol/L (21-32) Anion Gap 8 (6-14) Blood Urea Nitrogen 3 mg/dL (8-26) Creatinine 0.8 mg/dL (0.7-1.3) Estimated GFR (Cockcroft-Gault) 130.2 Glucose Level 107 mg/dL (70-99) Calcium Level 9.6 mg/dL (8.5-10.1) Magnesium Level 1.9 mg/dL (1.8-2.4) Creatine Kinase 2990 U/L (39-308) Medications Current Medications Sodium Chloride 1,000 ml @ 1,000 mls/hr 1X ONCE IV Last administered on 08/02/21at 19:28; Start 08/02/21 at 19:00; Stop 08/02/21 at 19:59; Status DC Levetiracetam 100 ml @ 400 mls/hr 1X ONCE IV Last administered on 08/02/21at 19:19; Start 08/02/21 at 19:15; Stop 08/02/21 at 19:29; Status DC Sodium Chloride 1,000 ml @ 1,000 mls/hr 1X ONCE IV Last administered on 08/02/21at 20:17; Start 08/02/21 at 20:00; Stop 08/02/21 at 20:59; Status DC Ondansetron HCl (Zofran) 4 mg 1X ONCE IVP ; Start 08/02/21 at 22:00; Stop 08/02/21 at 22:01; Status DC Ondansetron HCl (Zofran) 4 mg PRN Q8HRS PRN IVP NAUSEA/VOMITING 1ST CHOICE; Start 08/02/21 at 21:45; Stop 08/03/21 at 21:44; Status DC Acetaminophen (Tylenol) 650 mg PRN Q4HRS PRN PO FEVER > 100.3'F; Start 08/02/21 at 21:45; Stop 08/03/21 at 12:40; Status DC Levetiracetam (Keppra) 500 mg BID PO Last administered on 08/05/21at 08:44; Start 08/03/21 at 10:30 Potassium Chloride (Klor-Con) 40 meq 1X ONCE PO Last administered on 08/03/21at 10:08; Start 08/03/21 at 10:00; Stop 08/03/21 at 10:01; Status DC Sodium Chloride 1,000 ml @ 150 mls/hr Q6H40M IV Last administered on 08/05/21at 03:37; Start 08/03/21 at 10:00; Stop 08/05/21 at 08:47; Status DC Acetaminophen (Tylenol) 650 mg 1X ONCE PO Last administered on 08/03/21at 10:08; Start 08/03/21 at 09:45; Stop 08/03/21 at 09:46; Status DC Acetaminophen (Tylenol) 650 mg PRN Q6HRS PRN PO MILD PAIN / TEMP > 100.3'F; Start 08/03/21 at 09:45 Acetaminophen/ Butalbital/ Caffeine (Fioricet) 1 tab PRN Q12HRS PRN PO MIGRAINE HEADACHE; Start 08/03/21 at 09:45 Enoxaparin Sodium (Lovenox Per Pharmacy Prophylaxis Dosing) 1 each PRN DAILY PRN MC SEE COMMENTS; Start 08/03/21 at 12:45 Enoxaparin Sodium (Lovenox 40mg Syringe) 40 mg Q24H SQ Last administered on 08/03/21at 16:50; Start 08/03/21 at 16:00 Amlodipine Besylate (Norvasc) 5 mg 1X ONCE PO Last administered on 08/05/21at 09:20; Start 08/05/21 at 09:15; Stop 08/05/21 at 09:16; Status DC Active Scripts Active Reported Levetiracetam 500 Mg Tablet 1 Tab PO BID Vitals/I & O Vital Sign - Last 24 Hours 08/04/21 08/04/21 08/04/21 08/04/21 12:15 15:30 19:45 20:00 Temp 98.5 97.3 97.8 98.5 97.3 97.8 Pulse 106 123 60 Resp 18 16 18 B/P (MAP) 129/96 (107) 150/101 (117) 157/94 (115) Pulse Ox 98 99 100 O2 Delivery Room Air Room Air Room Air Room Air 08/04/21 08/05/21 08/05/21 08/05/21 23:25 03:30 07:00 09:20 Temp 97.7 98.2 98.0 97.7 98.2 98.0 Pulse 70 61 60 60 Resp 18 18 18 B/P (MAP) 151/100 (117) 155/95 (115) 174/104 (127) 174/104 Pulse Ox 100 98 100 O2 Delivery Room Air Room Air Room Air Intake and Output 08/04/21 08/04/21 08/05/21 15:00 23:00 07:00 Intake Total 1000 ml 1000 ml 1360 ml Output Total 200 ml Balance 800 ml 1000 ml 1360 ml Justicifation of Admission Dx: Justifications for Admission: Justification of Admission Dx: Yes Altered Mental Status: Altered Mental Status ANDREW MORRISON MD Aug 05, 2021 10:05
--- NOTE | 2021-08-05 12:00 | NUR ---
Patient asked for AMA form this AM, patient stated "i'm over this, I gotta get out of here. I'm leaving. get me my papers" Patient educated on the risks of leaving AMA. Patient verbally stated he understood the risks of leaving and signed AMA form. Dr. Slade notified of incident. Security paged and responded to escort patient out.
--- NOTE | 2021-08-06 16:58 | PDOC3 ---
[facility]-Discharge Summary Date of Admission: Date of Admission: Aug 03, 2021 Date of Discharge: Date of Discharge: Aug 05, 2021 Discharge Diagnosis: Discharge Diagnosis: seizure, off keppra 2 months, restarted rhabdomyolysis from seizure, cont IV fluid at 150 headache, Consults: Consults: Plan Continue levetiracetam Seizure precautions discussed at length. No driving until 6 months seizure- free. Hospital Course: Hospital Course: 40 year old male had a seizure just after he clocked into work, reproted 2 minute grand-mal seizrue by a coworker. was standing and fell, He has no recollection,but awoke in the ambualnce, reported same admit 6 months ago, seizure and admit [facility] and they started him on Keppra and he has not followed up and has now run out of meds for 2 months. talking to me, he doesnt want to take any meds, barely wants to try tylenol for his headache, talks about "I dont want to be depedent of drugs" or " I dont want to flood my system with a bunch of drugs" Rates his headache at a aching 6 out of 10 CK was in the 3000 on day of discharge, but patient had to leave for unknown reasons. He was anxious to leave and could not wait for his labs to improve to discharge. I was unable to discharge him because of the risk of AARON with Rhabdo. Patient eventually left AMA. Disposition: Disposition/Orders: Other (AMA) Activity: Activity: Resume previous activity Medications: Home Meds Reported Medications Levetiracetam (LEVETIRACETAM) 500 Mg Tablet, 1 TAB PO BID for seizures 08/03/21 Scheduled Levetiracetam (Levetiracetam), 1 TAB PO BID, (Reported) Total Time: Total Time: Total time spent was 32 minutes in preparing scripts and discharge planning with SW and RN. Patient seen and examined on day of Discharge. Justicifation of Admission Dx: Justifications for Admission: Justification of Admission Dx: Yes Altered Mental Status: Altered Mental Status GM YING MD Aug 06, 2021 16:58
== END 2021-08-05 11:34 | disposition left against medical advice (07) | DRG 101 ==
LOC: ER 18:30 → 6 SOUTH 21:42 → OBSVTOIN 08-03 14:49
PROVIDERS: ADMIT Student in an Organized Health Care Education/Training Program; ATTEND Student in an Organized Health Care Education/Training Program
DX: G40.909 Epilepsy, unspecified, not intractable, without status epilepticus (principal); M62.82 Rhabdomyolysis; M54.2 Cervicalgia; F12.90 Cannabis use, unspecified, uncomplicated; Z91.14 Patient's other noncompliance with medication regimen; Z87.891 Personal history of nicotine dependence; Z91.19 Patient's noncompliance with other medical treatment and regimen
CPT/HCPCS: 36415; 70450; 71045; 72125; 80048; 80053; 80177; 80307; 82010; 82550; 83690; 83735; 85025; 85027; 93005; 96361; 96365; G0378; G0379; G0480; J1650; J7030; 99285-25